=== PATIENT | female | born 1945 | race Two or more races ===

== ENCOUNTER 2020-12-09 14:18 | Emergency (ER) | payer MEDICARE ==
[~2020-12-09] VITALS: Ht 167.6 cm; Wt 72.0 kg
--- NOTE | 2020-12-09 14:35 | NUR ---
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
--- NOTE | 2020-12-09 14:38 | NUR ---
PA assessment completed. Pt changing into gowns for xrays. Pt able to walk with steady gait and standby assist to restroom without issue. Pt able to walk independently back to room.
[2020-12-09] MEDS ORDERED: LISI-170 PO (14:44)
--- NOTE | 2020-12-09 14:55 | NUR ---
Pt in radiology at this time.
[2020-12-09 16:14] VITALS: BP 141/70
== END 2020-12-09 16:16 | disposition home or self-care (01) ==
LOC: ED 15:22
DX: S39.012A Strain of muscle, fascia and tendon of lower back, initial encounter (principal); X58.XXXA Exposure to other specified factors, initial encounter; Y93.89 Activity, other specified; Y92.89 Other specified places as the place of occurrence of the external cause; Y99.8 Other external cause status
CPT/HCPCS: 72110; 99283